=== PATIENT | male | born 1960 | race Hispanic/Latino ===

== ENCOUNTER 2019-09-29 19:39 | Emergency (ER) | payer BC ==
[2019-09-29] MEDS ORDERED: DIPHENHYDRAMINE 50 MG/ML VIAL ONE (20:04)
[2019-09-29] MEDS ORDERED: METHYLPREDNISOLONE 125 MG INJ ONE (20:04)
[2019-09-29] MEDS ORDERED: FAMOTIDINE 20 MG/2 ML VIAL IV ONE (20:05)
--- NOTE | 2019-09-29 20:58 | ER ---
Nurse's Notes [facility] Name: Lester Kate Age: 58 yrs Sex: Male : 1960 Arrival Date: 09/29/2019 Time: 19:45 Bed 20 Private MD: Diagnosis: Allergy to seafood Presentation: 09/28 19:50 Chief complaint: Patient states: Had shrimp then noticed rash to legs/neck/face. No ll1 SOB. Coronavirus screen: Proceed with normal triage. Patient denies a cough. Patient denies shortness of breath or difficulty breathing. Patient denies measured and/or subjective temperature greater than 100.4F prior to today's visit. Patient denies travel on a cruise ship or to a country the [facility] currently lists as an affected area. Patient denies contact with known and/or suspected case of COVID-19. Ebola Screen: Patient denies travel to an Ebola-affected area in the 21 days before illness onset. Initial Sepsis Screen: Does the patient meet any 2 criteria? No. Patient's initial sepsis screen is negative. Does the patient have a suspected source of infection? No. Patient's initial sepsis screen is negative. Risk Assessment: Do you want to hurt yourself or someone else? Patient reports no desire to harm self or others. Onset of symptoms was September 29, 2019. 19:50 Method Of Arrival: Ambulatory ll1 19:50 Acuity: JAELYN 3 ll1 Historical: - Allergies: 19:52 No Known Allergies; ll1 - PMHx: 19:52 Hyperlipidemia; ll1 - PSHx: 19:52 None; ll1 - Immunization history:: Flu vaccine status is unknown. - Social history:: Smoking status: Patient denies any tobacco usage or history of. Patient/guardian denies using alcohol, street drugs, tobacco products. Screenin:06 Abuse screen: Denies threats or abuse. Denies injuries from another. Nutritional mg2 screening: No deficits noted. Tuberculosis screening: No symptoms or risk factors identified. Fall Risk IV access (20 points). Assessment: 20:05 General: Appears in no apparent distress. comfortable, Behavior is calm, cooperative. mg2 Pain: Denies pain. Neuro: Level of Consciousness is awake, alert, obeys commands, Oriented to person, place, time, situation. Cardiovascular: Capillary refill < 3 seconds Patient's skin is warm and dry. Respiratory: Airway is patent Respiratory effort is even, unlabored, Respiratory pattern is regular, symmetrical. GI: No signs and/or symptoms were reported involving the gastrointestinal system. : No signs and/or symptoms were reported regarding the genitourinary system. EENT: No signs and/or symptoms were reported regarding the EENT system. Derm: Rash noted that is itchy, papular, red, raised, on face and right leg. Musculoskeletal: Circulation, motion, and sensation intact. Capillary refill < 3 seconds. 21:07 Reassessment: Patient appears in no apparent distress at this time. Patient states mg2 feeling better. Patient states symptoms have improved. Vital Signs: 19:50 BP 140 / 92; Pulse 80; Resp 18; Temp 98.7(O); Pulse Ox 97% ; Pain 0/10; mg2 21:07 BP 138 / 95; Pulse 78; Resp 18; Temp 98.5; Pulse Ox 100% on R/A; mg2 ED Course: 19:45 Patient arrived in ED. cl3 19:47 Porfirio Velasco MD is Attending Physician. tw4 19:51 Triage completed. ll1 19:52 Pito Raphael, RN is Primary Nurse. mg2 19:52 Arm band placed on Patient placed in an exam room, on a stretcher. ll1 20:04 Inserted saline lock: 20 gauge in right antecubital area, using aseptic technique. mg2 20:06 No provider procedures requiring assistance completed. mg2 20:07 Patient has correct armband on for positive identification. mg2 21:07 IV discontinued, intact, bleeding controlled, No redness/swelling at site. Pressure mg2 dressing applied. Administered Medications: 20:04 Drug: Benadryl 25 mg Route: IVP; Site: right antecubital; mg2 20:30 Follow up: Response: No adverse reaction; Marked relief of symptoms mg2 20:05 Drug: SOLU-Medrol 125 mg Route: IVP; Site: right antecubital; mg2 20:30 Follow up: Response: No adverse reaction; Marked relief of symptoms mg2 20:05 Drug: Pepcid 20 mg Route: IVP; Site: right antecubital; mg2 20:30 Follow up: Response: No adverse reaction; Marked relief of symptoms mg2 Outcome: 20:56 Discharge ordered by . tw4 21:08 Discharged to home ambulatory. mg2 21:08 Condition: stable 21:08 Discharge instructions given to patient, Instructed on discharge instructions, follow up and referral plans. medication usage, Demonstrated understanding of instructions, follow-up care, medications, Prescriptions given X 2. 21:08 Patient left the ED. mg2 Signatures: Porfirio Velasco MD MD tw4 Pito Raphael RN RN mg2 Kayy Galindo cl3 Peg Galindo RN RN ll1 Corrections: (The following items were deleted from the chart) 19:53 19:50 BP 140 / 92; Pulse 80bpm; Resp 18bpm; Pulse Ox 97%; Pain 0/10; ll1 mg2
--- NOTE | 2019-09-29 20:58 | EDPHYS ---
Physician Documentation [facility] Name: Lester Kate Age: 58 yrs Sex: Male : 1960 Arrival Date: 09/29/2019 Time: 19:45 Bed 20 Private MD: ED Physician Porfirio Velasco HPI: 09/28 20:49 This 58 yrs old Male presents to ER via Ambulatory with complaints of Rash. tw4 20:49 The patient presents with rash, that is diffuse. Onset: The symptoms/episode tw4 began/occurred today. Associated signs and symptoms: The patient has no apparent associated signs or symptoms. At home the patient or guardian has treated the symptoms with nothing. Severity of symptoms: At their worst the symptoms were mild in the emergency department the symptoms are unchanged. The patient has not experienced similar symptoms in the past. 20:49 Possible causes: shellfish. tw4 Historical: - Allergies: 19:52 No Known Allergies; ll1 - PMHx: 19:52 Hyperlipidemia; ll1 - PSHx: 19:52 None; ll1 - Immunization history:: Flu vaccine status is unknown. - Social history:: Smoking status: Patient denies any tobacco usage or history of. Patient/guardian denies using alcohol, street drugs, tobacco products. ROS: 20:49 Constitutional: Negative for fever, chills, and weight loss, Eyes: Negative for injury, tw4 pain, redness, and discharge, Cardiovascular: Negative for chest pain, palpitations, and edema, Respiratory: Negative for shortness of breath, cough, wheezing, and pleuritic chest pain, Abdomen/GI: Negative for abdominal pain, nausea, vomiting, diarrhea, and constipation, MS/Extremity: Negative for injury and deformity, Neuro: Negative for headache, weakness, numbness, tingling, and seizure. 20:49 Skin: Positive for rash, diffusely. Exam: 20:49 Constitutional: This is a well developed, well nourished patient who is awake, alert, tw4 and in no acute distress. Head/Face: Normocephalic, atraumatic. Chest/axilla: Normal chest wall appearance and motion. Nontender with no deformity. No lesions are appreciated. Cardiovascular: Regular rate and rhythm with a normal S1 and S2. No gallops, murmurs, or rubs. Normal PMI, no JVD. No pulse deficits. Respiratory: Lungs have equal breath sounds bilaterally, clear to auscultation and percussion. No rales, rhonchi or wheezes noted. No increased work of breathing, no retractions or nasal flaring. Abdomen/GI: Soft, non-tender, with normal bowel sounds. No distension or tympany. No guarding or rebound. No evidence of tenderness throughout. MS/ Extremity: Pulses equal, no cyanosis. Neurovascular intact. Full, normal range of motion. Neuro: Awake and alert, GCS 15, oriented to person, place, time, and situation. Cranial nerves II-XII grossly intact. Motor strength 5/5 in all extremities. Sensory grossly intact. Cerebellar exam normal. Normal gait. 20:49 Skin: urticaria. Vital Signs: 19:50 BP 140 / 92; Pulse 80; Resp 18; Temp 98.7(O); Pulse Ox 97% ; Pain 0/10; mg2 21:07 BP 138 / 95; Pulse 78; Resp 18; Temp 98.5; Pulse Ox 100% on R/A; mg2 MDM: 19:56 Patient medically screened. tw4 20:49 Differential diagnosis: anaphylaxis, Arrhythmias. Data reviewed: vital signs, nurses tw4 notes. Data interpreted: Pulse oximetry: Interpretation: normal. Counseling: I had a detailed discussion with the patient and/or guardian regarding: the historical points, exam findings, and any diagnostic results supporting the discharge/admit diagnosis. Medication response: solumedrol. Response to treatment: the patient's symptoms have resolved after treatment, and as a result, I will discharge patient, administer steroids. Administered Medications: 20:04 Drug: Benadryl 25 mg Route: IVP; Site: right antecubital; mg2 20:30 Follow up: Response: No adverse reaction; Marked relief of symptoms mg2 20:05 Drug: SOLU-Medrol 125 mg Route: IVP; Site: right antecubital; mg2 20:30 Follow up: Response: No adverse reaction; Marked relief of symptoms mg2 20:05 Drug: Pepcid 20 mg Route: IVP; Site: right antecubital; mg2 20:30 Follow up: Response: No adverse reaction; Marked relief of symptoms mg2 Disposition: 09/29/19 20:56 Discharged to Home. Impression: Allergy to seafood. - Condition is Stable. - Discharge Instructions: Allergies, Adult. - Prescriptions for Medrol (Enoch) 4 mg Oral Tablets, Dose Pack - take 1 tablet by ORAL route as directed - follow package instructions; 1 packet. EpiPen 0.3 mg Injection auto- injector - inject 1 pen by INTRAMUSCULAR route once as needed Inject into the outer portion of the thigh, through clothing if necessary. Indicated in the emergency treatment of allergic reactions; 1 Cartridge. - Medication Reconciliation Form, Thank You Letter, Antibiotic Education, Prescription Opioid Use form. - Follow up: Private Physician; When: Upon discharge from the Emergency Department; Reason: Recheck today's complaints, Continuance of care, Re-evaluation by your physician. Signatures: Porfirio Velasco MD MD tw4 Pito Raphael RN RN mg2 Peg Galindo RN RN ll1 Corrections: (The following items were deleted from the chart) 20:50 20:49 Possible causes: The patient has no known obvious cause for the symptoms, tw4 tw4 21:08 20:56 09/29/2019 20:56 Discharged to Home. Impression: Allergy to seafood. Condition is mg2 Stable. Forms are Medication Reconciliation Form, Thank You Letter, Antibiotic Education, Prescription Opioid Use. Follow up: Private Physician; When: Upon discharge from the Emergency Department; Reason: Recheck today's complaints, Continuance of care, Re-evaluation by your physician. tw4
[2019-09-29 23:11] VITALS: BP 138/95; TEMP 98.5; O2SAT 100
== END 2019-09-29 21:08 | disposition home or self-care (01) ==
LOC: ER 19:39
DX: R21 Rash and other nonspecific skin eruption (principal); Z91.013 Allergy to seafood; E78.5 Hyperlipidemia, unspecified
CPT/HCPCS: J1200; J2930